=== PATIENT | male | born 1945 | race Caucasian/White ===

== ENCOUNTER 2023-04-16 16:21 | Inpatient (IN) | payer OTHER, MEDICARE ==
[~2023-04-16] VITALS: Ht 172.7 cm; Wt 90.7 kg
[2023-04-16 18:04] LABS: BASOPHILS % (AUTO) 0.6 % (0.0-2.0); EOSINOPHILS # (AUTO) 0.4 K/uL (0.0-0.7); EOSINOPHILS % (AUTO) 5.3 % (0.0-6.0); HEMATOCRIT 31 % (39-51); LYMPHOCYTES # (AUTO) 1.2 K/uL (0.8-4.8); LYMPHOCYTES % (AUTO) 14.8 % (20.0-44.0); MEAN CORPUSCULAR HEMOGLOBIN 28 PG (26.0-33.0); MEAN CORPUSCULAR HGB CONC 33 g/dl (31.0-36.0); MEAN CORPUSCULAR VOLUME 86 fL (80-96); MONOCYTES # (AUTO) 0.9 K/uL (0.1-1.30); MONOCYTES % (AUTO) 10.7 % (2.0-12.0); NEUTROPHILS # (AUTO) 5.5 K/uL (1.8-8.9); NEUTROPHILS % (AUTO) 68.6 % (43.0-81.0); PLATELET COUNT (AUTO) 377 K/uL (150-450); RED BLOOD CELL COUNT(AUTO) 3.61 MIL/uL (4.5-6.0); RED CELL DISTRIBUTION WIDTH 14.7 % (11.5-15.0)
[2023-04-16 18:15] LABS: CALCIUM, SERUM 9.3 mg/dL (8.5-10.1); CARBON DIOXIDE 24 mmol/L (21-32); CHLORIDE 104 mmol/L (98-107); CREATININE 1.6 mg/dL (0.6-1.3); GLUCOSE 122 mg/dL (74-106); POTASSIUM 5.2 mmol/L (3.5-5.1); SODIUM SERUM 136 mmol/L (136-145); UREA NITROGEN, BLOOD 27 mg/dL (7-18)
[2023-04-16 18:16] LABS: SERUM AMMONIA 9 umol/L (11-32)
[2023-04-16 18:22] LABS: ALANINE AMINOTRANSFERASE 34 U/L (12-78); ALBUMIN 3.5 g/dL (3.4-5.0); ALKALINE PHOSPHATASE 26 U/L (46-116); ASPARTATE AMINOTRANSFERASE 20 U/L (15-37); BILIRUBIN,DIRECT 0.1 mg/dL (0.0-0.2); BILIRUBIN,TOTAL 0.4 mg/dL (0.2-1.0); TOTAL PROTEIN, SERUM 6.6 g/dL (6.4-8.2)
[2023-04-16 18:33] LABS: INR 1.07 (0.91-1.10); PARTIAL THROMBOPLASTIN TIME 20.5 SEC (24.3-34.3); PROTHROMBIN TIME 11.3 SECS (9.2-11.1)
[2023-04-16] MEDS ORDERED: LEVO88TA5 PO (18:47)
[2023-04-16] MEDS ORDERED: MULT-594 PO (18:47)
[2023-04-16] MEDS ORDERED: METF-442 PO (18:47)
[2023-04-16] MEDS ORDERED: ATOR80TA PO (18:47)
[2023-04-16] MEDS ORDERED: METO25TA4 PO (18:47)
[2023-04-16] MEDS ORDERED: ASPI-1169 PO (18:47)
[2023-04-16] MEDS ORDERED: EZET10TA16 PO (18:47)
[2023-04-16] MEDS ORDERED: NITR0.4T48 SL (18:47)
[2023-04-16] MEDS ORDERED: CLOP75TA15 PO (18:47)
[2023-04-16] MEDS ORDERED: FAMO-131 PO (18:47)
[2023-04-16] MEDS ORDERED: FINA5TAB11 PO (18:47)
[2023-04-16] MEDS ORDERED: FENO145T21 PO (18:47)
[2023-04-16] MEDS ORDERED: AMLO2.5T2 PO (18:47)
[2023-04-16] MEDS ORDERED: LOSA50TA39 PO (18:47)
[2023-04-16] MEDS ORDERED: ASCO500T10 PO (18:47)
[2023-04-16 21:20] VITALS: BP 132/76; TEMP 97.5; O2SAT 98
[2023-04-16 21:20] LABS: APPEARANCE,URINE CLEAR (CLEAR); BILIRUBIN,URINE NEGATIVE (NEGATIVE); BLOOD, URINE NEGATIVE Ery/uL (NEGATIVE); COLOR,URINE YELLOW (YELLOW); KETONES,URINE NEGATIVE (NEGATIVE); LEUKOCYTE ESTERASE ,URINE TRACE (NEGATIVE); NITRITE, URINE NEGATIVE (NEGATIVE); PROTEIN,URINE NEGATIVE (NEGATIVE); UGLUCOSE NEGATIVE (NEGATIVE); UROBILINOGEN,URINE 0.2 EU/dL (0.2)
[2023-04-16] MEDS ORDERED: ACETAMINOPHEN 325 MG TABLET PO PRN (21:30)
[2023-04-16] MEDS ORDERED: MAG HYDROX/AL HYDROX/SIMETH 30 ML UDC PO PRN (21:30)
[2023-04-16] MEDS ORDERED: NITROGLYCERIN 0.4 MG/TAB BOTTLE SL PRN (21:30)
[2023-04-16] MEDS ORDERED: MAGNESIUM HYDROXIDE 30 ML UDC PO PRN (21:30)
[2023-04-16] MEDS ORDERED: ONDANSETRON HCL/PF 4 MG/2 ML VIAL IVP PRN (21:30)
[2023-04-16 21:36] LABS: RBC,URINE 0-2 /HPF (0-2)
[2023-04-16 21:37] LABS: ADD URINE CULTURE NO; BACTERIA,URINE Few /HPF (None Seen); FINE GRANULAR CASTS,URINE Few /LPF (None Seen); HYALINE CASTS, URINE Few /LPF (None Seen); SQUAMOUS EPITHELIAL CELL,UR Few /HPF (None Seen)
[2023-04-16] MEDS: IV NS 0.9% 1,000 ML IV SCH (21:55)
[2023-04-16] MEDS ORDERED: DEXTROSE 50%-WATER 50 ML DISP.SYRIN IV PRN (22:00)
[2023-04-16] MEDS: BLOOD SUGAR DIAGNOSTIC 1 EACH STRIP IN SCH (22:59)
[2023-04-17] VITALS: BP 116/69; TEMP 97.7; O2SAT 96
[2023-04-17 04:34] VITALS: BP_SYST 102; BP_SYST 122; BP_SYST 128; BP_DIAS 64; BP_DIAS 72; BP_DIAS 77; TEMP 97.7; O2SAT 95
[2023-04-17] MEDS: BLOOD SUGAR DIAGNOSTIC 1 EACH STRIP IN SCH ×4 (06:22→22:35)
[2023-04-17 07:00] VITALS: BP 134/69; TEMP 97.9; O2SAT 97
[2023-04-17] MEDS: LEVOTHYROXINE SODIUM 88 MCG TABLET PO SCH (07:35)
[2023-04-17 07:48] LABS: CALCIUM, SERUM 8.6 mg/dL (8.5-10.1); CARBON DIOXIDE 23 mmol/L (21-32); CHLORIDE 104 mmol/L (98-107); CREATININE 1.2 mg/dL (0.6-1.3); GLUCOSE 133 mg/dL (74-106); MAGNESIUM 1.9 mg/dL (1.8-2.4); PHOSPHORUS 4.3 mg/dL (2.5-4.9); POTASSIUM 4.5 mmol/L (3.5-5.1); SODIUM SERUM 138 mmol/L (136-145); UREA NITROGEN, BLOOD 23 mg/dL (7-18)
[2023-04-17 07:51] LABS: BASOPHILS % (AUTO) 0.6 % (0.0-2.0); EOSINOPHILS # (AUTO) 0.5 K/uL (0.0-0.7); EOSINOPHILS % (AUTO) 7.6 % (0.0-6.0); HEMATOCRIT 29 % (39-51); HEMOGLOBIN 9.4 g/dL (13.5-17.5); MEAN CORPUSCULAR HEMOGLOBIN 28 PG (26.0-33.0); MEAN CORPUSCULAR HGB CONC 33 g/dl (31.0-36.0); MEAN CORPUSCULAR VOLUME 85 fL (80-96); MONOCYTES # (AUTO) 0.6 K/uL (0.1-1.30); MONOCYTES % (AUTO) 10.9 % (2.0-12.0); NEUTROPHILS # (AUTO) 3.9 K/uL (1.8-8.9); NEUTROPHILS % (AUTO) 64.9 % (43.0-81.0); PLATELET COUNT (AUTO) 363 K/uL (150-450); RED BLOOD CELL COUNT(AUTO) 3.37 MIL/uL (4.5-6.0); RED CELL DISTRIBUTION WIDTH 15.3 % (11.5-15.0)
[2023-04-17 07:54] LABS: THYROID STIMULATING HORMONE 3.256 uIU/mL (0.358-3.74)
[2023-04-17] MEDS ORDERED: ASPIRIN 81 MG TAB.CHEW PO SCH (09:00)
[2023-04-17] MEDS: HEPARIN SODIUM, PORCINE 5000 UNITS/1 ML VIAL SQ SCH ×2 (09:00→09:05)
[2023-04-17] MEDS ORDERED: LOSARTAN POTASSIUM 50 MG TABLET PO SCH (09:00)
[2023-04-17] MEDS: FAMOTIDINE (20 MG) 20 MG TABLET PO SCH ×2 (09:06→16:39)
[2023-04-17] MEDS: MULTIVITAMINS,THERAGRAN 1 UDTAB TABLET PO SCH (09:06)
[2023-04-17] MEDS: AMLODIPINE BESYLATE 2.5 MG TABLET PO SCH (09:06)
[2023-04-17] MEDS: ATORVASTATIN 40 MG TABLET PO SCH (09:06)
[2023-04-17] MEDS: FENOFIBRATE NANOCRYS (145 MG) 145 MG TABLET PO SCH (09:07)
[2023-04-17] MEDS: EZETIMIBE 10 MG TABLET PO SCH (09:07)
[2023-04-17] MEDS: FINASTERIDE (5 MG) 5 MG TABLET PO SCH (09:07)
[2023-04-17] MEDS: CLOPIDOGREL BISULFATE 75 MG TABLET PO SCH (09:07)
[2023-04-17] MEDS: ASCORBIC ACID 500 MG TABLET PO SCH ×2 (09:08→16:39)
[2023-04-17] MEDS: METOPROLOL SUCCINATE 25 MG TAB.SR.24H PO SCH (09:08)
[2023-04-17] MEDS: IV NS 0.9% 1,000 ML IV SCH (11:10)
[2023-04-17 12:00] VITALS: BP 130/82; TEMP 98.8; O2SAT 96
[2023-04-17] MEDS: INSULIN REGULAR, HUMAN 100 UNIT/ML 3 ML VIAL SQ PRN ×2 (12:12→16:49)
[2023-04-17 15:00] LABS: CREATININE, URINE 39.2 MG/DL (30.0-125.0); URINE TOTAL PROTEIN 4.2 mg/dL (0-11.9)
[2023-04-17 16:00] VITALS: BP 128/71; TEMP 98.1; O2SAT 96
[2023-04-17] MEDS: APIXABAN 5 MG TABLET PO SCH (18:30)
[2023-04-17 20:50] VITALS: BP 117/73; TEMP 98.2; O2SAT 95
[2023-04-17] MEDS ORDERED: HEPARIN SODIUM, PORCINE 5000 UNITS/1 ML VIAL SQ SCH (21:00)
[2023-04-18 00:20] VITALS: BP 129/60; TEMP 97.9; O2SAT 95
[2023-04-18] MEDS: IV NS 0.9% 1,000 ML IV SCH (03:34)
[2023-04-18 04:24] VITALS: BP 118/76; TEMP 97.5; O2SAT 95
[2023-04-18 05:48] LABS: BASOPHILS % (AUTO) 0.7 % (0.0-2.0); EOSINOPHILS # (AUTO) 0.5 K/uL (0.0-0.7); EOSINOPHILS % (AUTO) 10.7 % (0.0-6.0); HEMATOCRIT 28 % (39-51); HEMOGLOBIN 9.3 g/dL (13.5-17.5); LYMPHOCYTES % (AUTO) 19.9 % (20.0-44.0); MEAN CORPUSCULAR HEMOGLOBIN 28 PG (26.0-33.0); MEAN CORPUSCULAR HGB CONC 33 g/dl (31.0-36.0); MEAN CORPUSCULAR VOLUME 85 fL (80-96); MONOCYTES # (AUTO) 0.6 K/uL (0.1-1.30); MONOCYTES % (AUTO) 12.5 % (2.0-12.0); NEUTROPHILS # (AUTO) 2.8 K/uL (1.8-8.9); NEUTROPHILS % (AUTO) 56.2 % (43.0-81.0); PLATELET COUNT (AUTO) 335 K/uL (150-450); RED CELL DISTRIBUTION WIDTH 14.9 % (11.5-15.0)
[2023-04-18 06:08] LABS: CALCIUM, SERUM 8.7 mg/dL (8.5-10.1); CREATININE 1.2 mg/dL (0.6-1.3); MAGNESIUM 1.7 mg/dL (1.8-2.4); PHOSPHORUS 3.7 mg/dL (2.5-4.9); POTASSIUM 4.5 mmol/L (3.5-5.1)
[2023-04-18] MEDS: BLOOD SUGAR DIAGNOSTIC 1 EACH STRIP IN SCH ×2 (06:35→11:44)
[2023-04-18 08:00] VITALS: BP 159/73; TEMP 97.4; O2SAT 99
[2023-04-18] MEDS ORDERED: MAGNESIUM OXIDE 400 MG TABLET PO ONE (08:00)
[2023-04-18] MEDS ORDERED: IV NS 0.9% 1,000 ML IV PRN (08:50)
[2023-04-18] MEDS: FINASTERIDE (5 MG) 5 MG TABLET PO SCH (08:54)
[2023-04-18] MEDS: LEVOTHYROXINE SODIUM 88 MCG TABLET PO SCH (08:54)
[2023-04-18] MEDS: METOPROLOL SUCCINATE 25 MG TAB.SR.24H PO SCH (08:55)
[2023-04-18] MEDS: EZETIMIBE 10 MG TABLET PO SCH (08:56)
[2023-04-18] MEDS: CLOPIDOGREL BISULFATE 75 MG TABLET PO SCH (08:56)
[2023-04-18] MEDS: FENOFIBRATE NANOCRYS (145 MG) 145 MG TABLET PO SCH (08:57)
[2023-04-18 08:58] VITALS: BP 149/72
[2023-04-18] MEDS: AMLODIPINE BESYLATE 2.5 MG TABLET PO SCH (08:58)
[2023-04-18] MEDS: ATORVASTATIN 40 MG TABLET PO SCH (08:59)
[2023-04-18] MEDS: APIXABAN 5 MG TABLET PO SCH ×2 (09:00→10:49)
[2023-04-18] MEDS: FAMOTIDINE (20 MG) 20 MG TABLET PO SCH (09:01)
[2023-04-18] MEDS: MULTIVITAMINS,THERAGRAN 1 UDTAB TABLET PO SCH (09:03)
[2023-04-18] MEDS: ASCORBIC ACID 500 MG TABLET PO SCH (09:03)
== END 2023-04-18 14:30 | disposition home or self-care (01) | DRG 308 ==
LOC: ER 17:05 → TELE 20:51
PROVIDERS: ADMIT Nurse Practitioner Acute Care; ATTEND Nurse Practitioner Acute Care
DX: I48.0 Paroxysmal atrial fibrillation (principal); N17.0 Acute kidney failure with tubular necrosis; I13.0 Hypertensive heart and chronic kidney disease with heart failure and stage 1 through stage 4 chronic kidney disease, or unspecified chronic kidney disease; I50.33 Acute on chronic diastolic (congestive) heart failure; E78.5 Hyperlipidemia, unspecified; N40.0 Benign prostatic hyperplasia without lower urinary tract symptoms; Z68.30 Body mass index [BMI] 30.0-30.9, adult; D64.9 Anemia, unspecified; E66.9 Obesity, unspecified; E86.9 Volume depletion, unspecified; E87.5 Hyperkalemia; I25.10 Atherosclerotic heart disease of native coronary artery without angina pectoris; Z95.1 Presence of aortocoronary bypass graft; Z95.5 Presence of coronary angioplasty implant and graft; Z88.0 Allergy status to penicillin; Z82.3 Family history of stroke; N18.9 Chronic kidney disease, unspecified; J45.909 Unspecified asthma, uncomplicated; E11.22 Type 2 diabetes mellitus with diabetic chronic kidney disease; G47.33 Obstructive sleep apnea (adult) (pediatric); Z79.84 Long term (current) use of oral hypoglycemic drugs; E88.9 Metabolic disorder, unspecified; Z80.0 Family history of malignant neoplasm of digestive organs
CPT/HCPCS: 36415; 70450-TC; 71045-TC; 76770-TC; 80048-TC; 80076-TC; 81001; 82140-TC; 82570-TC; 82962-TC; 83605-TC; 83735-TC; 83880; 84100-TC; 84300-TC; 84443-TC; 84484-TC; 85025-TC; 85730-TC; 93307-TC; 97110-TC; 97116-TC; 97530-TC; A4223; G0378; J1644; J1815; J7030